=== PATIENT | female | born 1970 | race Two or more races ===

== ENCOUNTER 2024-09-25 06:28 | Emergency (ER) | payer OTHER ==
[~2024-09-25] VITALS: Ht 160 cm; Wt 68.0 kg
[2024-09-25] MEDS ORDERED: ZESTRIL2.5 MG PO (06:33)
[2024-09-25] MEDS ORDERED: METFORMIN HCL500 M3 PO (06:34)
[2024-09-25] MEDS ORDERED: ATORVASTATIN CA10 MG PO (06:34)
[2024-09-25] MEDS ORDERED: TENORMIN25 MG PO (06:34)
[2024-09-25] MEDS ORDERED: VITAMIN D (06:34)
[2024-09-25] MEDS ORDERED: KETOROLAC TROMETHAMINE 60 MG VIAL IM STA (07:38)
[2024-09-25] MEDS ORDERED: ORPHENADRINE CITRATE 30 MG/ML AMPUL IM STA (07:39)
[2024-09-25] MEDS ORDERED: ORPHENADRINE CITRATE 30 MG/ML AMPUL ONE (08:05)
[2024-09-25] MEDS ORDERED: KETOROLAC TROMETHAMINE 60 MG VIAL IM ONE (08:06)
[2024-09-25] MEDS ORDERED: DICLOFENAC SODI75 MG PO (11:25)
[2024-09-25] MEDS ORDERED: BACLOFEN10 MG PO (11:25)
== END 2024-09-25 13:19 | disposition home or self-care (01) ==
LOC: ER 06:31
DX: M54.50 Low back pain, unspecified (principal); I10 Essential (primary) hypertension; E11.9 Type 2 diabetes mellitus without complications; Z79.84 Long term (current) use of oral hypoglycemic drugs
CPT/HCPCS: 72131; 96372; 99284; J1885; J2360